=== PATIENT | female | born 1990 | race Caucasian/White ===

== ENCOUNTER → 2017-11-27 23:07 | Observation (INO) ==
[2017-11-27 22:06] LABS: Basophils % 0.3 %; Eosinophils # 0.5 K/mcL (0.0-0.6); Eosinophils % 5.6 %; Hematocrit 33.4 % (35.3-44.9); Immature Granulocytes % 0.4 % (0-4); Lymphocytes # 2.4 K/mcL (0.6-4.6); Lymphocytes % 25.4 %; Mean Corpuscular HGB Conc 32.9 g/dL (31.6-35.5); Mean Corpuscular Hemoglobin 27.4 pg (28.0-33.3); Mean Corpuscular Volume 83.3 fL (83.0-100.0); Mean Platelet Volume 10.1 fL (9.4-12.4); Monocytes # 0.8 K/mcL (0.0-1.3); Monocytes % 8.7 %; Neutrophils # 5.7 K/mcL (1.6-8.9); Platelet Count 277 K/mcL (140-400); Red Blood Count 4.01 M/mcL (3.82-4.97); Red Cell Distribution Width 15.2 % (11.5-14.5); Segmented Neutrophils % 59.6 %
[2017-11-27 22:30] LABS: Alanine Aminotransferase 12 Units/L (7-52); Aspartate Amino Transferase 15 Units/L (13-39); BUN/Creatinine Ratio 11 (6-26); Blood Urea Nitrogen 6 mg/dL (6-20); Lactate Dehydrogenase 138 Units/L (140-271); Uric Acid 5.7 mg/dL (2.3-7.6); eGFR For African Americans > 60 (> 60); eGFR For Non-African Americans > 60 (> 60)
--- NOTE | 2017-11-27 22:54 | OB/GYN Progress Note ---
Date of Encounter: 11/27/17 Time of Encounter: 22:52 - Assessment and Plan (1) 34 weeks gestation of Current Visit: Yes Status: Acute (2) Decreased movement Current Visit: Yes Status: Acute Pt feeling movement with reactive NST. Normotensive during stay. All [facility] labs negative. Discharged home with labor and when to return to triage precautions. Qualifiers: Fetus number: single or unspecified fetus Trimester: third trimester Qualified Code(s): O36.8130 - Decreased movements, third trimester, not applicable or unspecified Subjective - Subjective Interval history: 34+6 weeks presents to [facility] with complaints of decreased movement and elevated BP at home on home machine. Pt states minimal this afternoon and evening. Denies contractions, vaginal bleeding or leaking of fluid Antepartum ROS: no loss of fluid, no vaginal bleeding, no movement normal , no contractions Objective - Vital Signs Vital Signs: Intake and Output 11/27/17 11/27/17 11/27/17 07:59 15:59 23:59 Other: Weight 115.666 kg Patient Weight 11/27/17 23:59 Weight 115.666 kg - Exam FHR: auscultation normal FHR comments: baseline 145 Abdomen: Present: normal appearance, soft, gravid - Labs Labs: Abnormal lab results Hgb 11.0 g/dL (11.5-15.4) L 11/27/17 21:50 Hct 33.4 % (35.3-44.9) L 11/27/17 21:50 MCH 27.4 pg (28.0-33.3) L 11/27/17 21:50 RDW 15.2 % (11.5-14.5) H 11/27/17 21:50 Creatinine 0.56 mg/dL (0.60-1.20) L 11/27/17 21:50 Lactate Dehydrogenase 138 Units/L (140-271) L 11/27/17 21:50
[2017-11-27 22:57] LABS: Amphetamine Screen,Urine Negative ng/mL (Cutoff=1000); Barbiturate Screen,Urine Negative ng/mL (Cutoff=200); Benzodiazepines Screen,Urine Negative ng/mL (Cutoff=200); Cannabinoid Screen,Urine Negative ng/mL (Cutoff = 50); Cocaine Screen,Urine Negative ng/mL (Cutoff= 300); Creatinine,Urine 29 mg/dL; Opiate Screen,Urine Negative ng/mL (Cutoff=300); Phencyclidine Screen,Urine Negative ng/mL (Cutoff=25); Protein/Creatinine Ratio,Urine 0.14 mg/mg (0.00-0.20)
== END | disposition home or self-care (01) ==
LOC: 1NENULAB
PROVIDERS: ADMIT Advanced Practice Midwife; ATTEND Advanced Practice Midwife